=== PATIENT | male | born 2000 | race Caucasian/White ===

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

== ENCOUNTER 2021-05-09 13:44 | Emergency (ER) | payer OTHER ==
[~2021-05-09] VITALS: Ht 177.8 cm; Wt 113.4 kg
[~2021-05-09 13:44] MED LIST changes: +DICY20TA PO; +PEPCID AC20 MG PO
== END 2021-05-09 17:28 | disposition home or self-care (01) ==
LOC: ER 13:44
DX: R10.13 Epigastric pain (principal)

== ENCOUNTER 2021-11-08 22:07 | Emergency (ER) | payer OTHER ==
[~2021-11-08] VITALS: Ht 177.8 cm; Wt 113.4 kg
== END 2021-11-08 22:49 | disposition home or self-care (01) ==
LOC: ER 22:07
DX: L73.8 Other specified follicular disorders (principal)

== ENCOUNTER 2022-02-22 18:46 | Emergency (ER) | payer OTHER ==
[~2022-02-22] VITALS: Ht 177.8 cm; Wt 113.4 kg
[2022-02-22] MEDS ORDERED: VYVANSE10 MG PO (19:07)
[2022-02-22] MEDS ORDERED: KEVEYIS50 MG (19:08)
== END 2022-02-23 01:56 | disposition home or self-care (01) ==
LOC: ER 18:46
DX: R10.13 Epigastric pain (principal)